=== PATIENT | female | born 1980 | race African-American/Black ===

== ENCOUNTER 2017-06-30 13:45 | Emergency (ER) | payer MEDICAID ==
[~2017-06-30] VITALS: Ht 160 cm; Wt 73.0 kg
[~2017-06-30 13:45] MED LIST: CALCIUM; IRON; PRENATAL VIT
[2017-06-30 13:49] VITALS: BP 114/74
== END 2017-06-30 16:04 | disposition left against medical advice (07) ==
LOC: ER 15:12
DX: Z53.21 Procedure and treatment not carried out due to patient leaving prior to being seen by health care provider (principal)